=== PATIENT | male | born 1985 | race Caucasian/White ===

== ENCOUNTER 2016-07-09 10:14 | Emergency (ER) | payer OTHER ==
[2016-07-09 10:56] VITALS: BP 131/87
--- NOTE | 2016-07-09 12:10 | UC ---
General HPI - HPI Summary HPI Summary: complaint of tick bite that he noticed it yesterday pulled out the tick yesterday most likely attached for aove 24-36 hours today a red rash surrounding bite today denies fever - History of Current Complaint Chief Complaint: KRISSYkin Stated Complaint: TICK BITE Time Seen by Provider: 07/09/16 12:02 Hx Obtained From: Patient - Allergy/Home Medications Allergies/Adverse Reactions: Allergies Allergy/AdvReac Type Severity Reaction Status Date / Time No Known Allergies Allergy Verified 07/09/16 10:51 Home Medications: Home Medications Naproxen Sodium [Naproxen Sodium 220 mg] 660 mg PO ONCE PRN 07/09/16 [History Confirmed 07/09/16] PMH/Surg Hx/FS Hx/Imm Hx Previously Healthy: Yes Cardiovascular History Of: Reports: Hypertension - resolved - Surgical History Surgical History: Yes Surgery Procedure, Year, and Place: [facility] REPAIR, [facility] - Family History Known Family History: Positive: None - Social History Occupation: Employed Full-time Lives: With Family Alcohol Use: Occasionally Alcohol Amount: 6 pack/week Substance Use Type: None Substance Use Comment - Amount & Last Used: OCCASSIONALLY Smoking Status (MU): Current Some Day Smoker Type: Cigarettes Amount Used/How Often: occasional use When Did the Patient Quit Smoking/Using Tobacco: 3 months ago Cessation Counseling: Patient Advised to Stop Review of Systems Constitutional: Negative Skin: Rash Eyes: Negative ENT: Negative Respiratory: Negative Cardiovascular: Negative Gastrointestinal: Negative Genitourinary: Negative Motor: Negative Neurovascular: Negative Musculoskeletal: Negative Neurological: Negative Psychological: Negative All Other Systems Reviewed And Are Negative: Yes Physical Exam Triage Information Reviewed: Yes Appearance: No Pain Distress, Well-Nourished Vital Signs: Initial Vital Signs Temp 98.6 F 07/09/16 10:52 Pulse 67 07/09/16 10:52 Resp 16 07/09/16 10:52 BP 131/87 07/09/16 10:52 Pulse Ox 97 07/09/16 10:52 Vital Signs Reviewed: Yes Eyes: Positive: Conjunctiva Clear ENT: Positive: Pharynx normal, TMs normal Neck: Positive: No Lymphadenopathy Respiratory: Positive: Lungs clear, Normal breath sounds, No respiratory distress, No accessory muscle use Cardiovascular: Positive: RRR, No Murmur, Pulses Normal Abdomen Description: Positive: Nontender, Soft Bowel Sounds: Positive: Present Musculoskeletal: Positive: No Edema Neurological: Positive: Alert Psychological Exam: Normal Skin: Positive: Other - left thigh- 3cm area of erythema surrounding tick bite site Course/Dx - Course Course Of Treatment: exam completed. will give prophylaxis dose for prevention of lyme disease - Differential Dx - Multi-Symptom Provider Diagnoses: tick bite Discharge - Discharge Plan Condition: Stable Disposition: HOME Prescriptions: DOXYcycline CAP(*) [DOXYcycline 100MG CAP(*)] 100 mg PO ONCE #2 cap Patient Education Materials: Tick Bite (ED) Referrals: No Primary Care Phys,NOPCP [Primary Care Provider] - [facility] [place] [facility] [Outside] Additional Instructions: Please take antibiotic as directed Increase fluids and rest Please review your discharge instructions. If your symptoms do not improve please call your primary care provider or return to urgent care.
== END 2016-07-09 12:21 | disposition home or self-care (01) ==
LOC: UCCORT 10:14
DX: S70.362A Insect bite (nonvenomous), left thigh, initial encounter (principal); W57.XXXA Bitten or stung by nonvenomous insect and other nonvenomous arthropods, initial encounter; Y93.9 Activity, unspecified; Y92.9 Unspecified place or not applicable; Z72.0 Tobacco use
CPT/HCPCS: 99212; G0463

== ENCOUNTER 2018-09-02 11:51 | Emergency (ER) | payer OTHER ==
[2018-09-02 12:21] VITALS: BP 125/85
--- NOTE | 2018-09-02 12:26 | UC ---
Skin Complaint HPI - HPI Summary HPI Summary: 33 yo male presents with sunburn to scalp/forehead. He tells me that 1 week ago he was mowing the lawn and sustained a sunburn to his scalp and forehead. Since that time he has developed increased redness and blistering/scabs to his frontal scalp that is TTP. He has tried not to itch the area, but states it is itchy and tender. Has not been applying any lotions or creams. Denies fever, chills, SOB, chest pain. - History of Current Complaint Chief Complaint: UCSkin Time Seen by Provider: 09/02/18 12:26 Stated Complaint: [email or web address].ON HEAD Hx Obtained From: Patient Onset/Duration: Sudden Onset Onset Severity: Mild Current Severity: Moderate Pain Intensity: 6 Pain Scale Used: 0-10 Numeric - Allergy/Home Medications Allergies/Adverse Reactions: Allergies Allergy/AdvReac Type Severity Reaction Status Date / Time No Known Allergies Allergy Verified 09/02/18 12:20 Home Medications: Home Medications Ranitidine TAB (NF) [Zantac TAB (NF)] 150 mg PO BID PRN 09/02/18 [History Confirmed 09/02/18] PMH/Surg Hx/FS Hx/Imm Hx GI/ History: Gastroesophageal Reflux - Surgical History Surgical History: Yes Surgery Procedure, Year, and Place: [facility]IA REPAIR, [place] - Family History Known Family History: Positive: None - Social History Occupation: Employed Full-time Lives: With Family Alcohol Use: Occasionally Alcohol Amount: 6 pack/week Substance Use Type: None Substance Use Comment - Amount & Last Used: OCCASSIONALLY Smoking Status (MU): Current Some Day Smoker Type: Cigarettes Amount Used/How Often: occasional use When Did the Patient Quit Smoking/Using Tobacco: 3 months ago Review of Systems All Other Systems Reviewed And Are Negative: Yes Constitutional: Positive: Negative Skin: Positive: Other - Sunburn scalp Respiratory: Positive: Negative Cardiovascular: Positive: Negative Neurovascular: Positive: Negative Neurological: Positive: Negative Psychological: Positive: Negative Physical Exam - Summary Physical Exam Summary: GENERAL: NAD. WDWN. No pain distress. SKIN: Frontal scalp: 4.0cm diameter area of moderate erythema with central blistering and some small scabs. Mild warmth. Mild TTP. No active drainage, bleeding, streaking. NECK: Supple. Nontender. No lymphadenopathy. CHEST: No accessory muscle use. Breathing comfortably and in no distress. CV: Pulses intact. Cap refill <2seconds NEURO: Alert. PSYCH: Age appropriate behavior. Triage Information Reviewed: Yes Vital Signs: Initial Vital Signs Temp 98.1 F 09/02/18 12:16 Pulse 72 09/02/18 12:16 Resp 16 09/02/18 12:16 BP 125/85 09/02/18 12:16 Pulse Ox 100 09/02/18 12:16 Vital Signs Reviewed: Yes Course/Dx - Course Course Of Treatment: Second degree burn with possible cellulitis to frontal scalp. Will rx for silvadene and keflex. - Diagnoses Provider Diagnosis: Second degree burn of scalp Discharge - Sign-Out/Discharge Documenting (check all that apply): Patient Departure All imaging exams completed and their final reports reviewed: No Studies - Discharge Plan Condition: Stable Disposition: HOME Prescriptions: Cephalexin CAP* [Keflex CAP*] 500 mg PO TID #15 cap Silver Sulfadiazine 1%* [SILVadine 1%*] 1 applic TOPICAL BID #1 tube Patient Education Materials: Cellulitis (DC), Second Degree Burn (ED) Referrals: No Primary Care Phys,NOPCP [Primary Care Provider] - Additional Instructions: If you develop a fever, shortness of breath, chest pain, new or worsening symptoms - please call your PCP or go to the ED immediately. - Billing Disposition and Condition Condition: STABLE Disposition: Home
== END 2018-09-02 12:37 | disposition home or self-care (01) ==
LOC: UCEAST 11:51
DX: L55.1 Sunburn of second degree (principal); F17.210 Nicotine dependence, cigarettes, uncomplicated
CPT/HCPCS: 99212; G0463